=== PATIENT | male | born 1930 | race Caucasian/White ===

== ENCOUNTER → 2016-09-01 | Outpatient (CLI) | payer BC ==
[~2016-09-01] MED LIST: ASCO10003 PO; ASPCH81X PO; GLC500 PO; GLIP5TAB11 PO; LEVO100T PO; METF1000 PO; WARF2TAB PO
[2016-09-02 05:53] LABS: ESTIMATED AVERAGE GLUCOSE 163 mg/dl; HA1C FLAG Normal (Normal)
== END | disposition home or self-care (01) ==
LOC: C.LAB 16:05
PROVIDERS: ATTEND Internal Medicine
DX: E11.9 Type 2 diabetes mellitus without complications (principal)

== ENCOUNTER → 2016-11-11 | Outpatient (CLI) | payer BC ==
[~2016-11-11] MED LIST changes: +ACET-24 PO; +CMD5 PO; +LSN5 PO; +LVNIS80 SQ; +PRLSR20 PO; +RXC5 PO
--- NOTE | 2016-11-11 16:49 | DIAGNOSTIC IMAGING REPORT ---
CT SCAN OF THE ABDOMEN AND PELVIS WITHOUT CONTRAST CLINICAL HISTORY: Acute right lower quadrant abdominal pain COMPARISON STUDY: 04/22/2014 TECHNIQUE: CT scan of the abdomen and pelvis was performed from the lung bases to the proximal femurs. Images are reviewed in the axial, sagittal, and coronal planes. IV contrast was not administered for this examination. CT DOSE: 420.16 mGy.cm FINDINGS: Lower chest: There is mild basilar atelectasis and mild subpleural reticulation. Liver: The unenhanced liver is normal in size, contour, and attenuation. There is no intrahepatic biliary ductal dilatation. Gallbladder: Unremarkable. Spleen: Normal in size and attenuation. Pancreas: Unremarkable. Adrenal glands: Unremarkable. Kidneys: No renal, ureteral, or bladder calculi are visualized. Bowel: There is moderate stool present within the colon. There are no transition zones indicate bowel obstruction. There is no evidence of acute diverticulitis. By history the appendix is surgically absent Peritoneum: There is no intraperitoneal free air or abdominal ascites. Vasculature: The abdominal aorta is normal in course and caliber. Adenopathy: None. Pelvic viscera: The prostate is enlarged measuring 6 cm. There is mild bladder wall thickening. Skeletal structures: No destructive osseous lesions are seen. IMPRESSION: 1. No acute findings 2. No evidence of bowel obstruction. No evidence of free air 3. No renal, ureteral, or bladder calculi identified 4. Surgically absent appendix. No evidence of acute diverticulitis. 5. Prostamegaly. Mild bladder wall thickening Electronically signed by: Jesus Manuel Bartholomew M.D. 11/11/2016 4:48 PM Dictated Date/Time: 11/11/2016 4:45 PM
== END | disposition home or self-care (01) ==
LOC: C.CTS 14:18
PROVIDERS: ATTEND Internal Medicine
DX: R10.31 Right lower quadrant pain (principal)

== ENCOUNTER → 2016-11-19 | Outpatient (CLI) | payer BC ==
[2016-11-19 16:39] LABS: BASO % 0.7 %; BASO ABS # 0.04 K/uL (0-0.2); COMPLETE YES; EOS % 4.5 %; HEMATOCRIT 39.9 % (42-52); IG% 0.2 %; LYMPH % 25.4 %; LYMPH ABS # 1.41 K/uL (1.2-3.4); MEAN CELL VOLUME 93.2 fL (80-100); MEAN CORPUSCULAR HGB CONC 34.3 g/dl (32-36); MEAN PLATELET VOLUME 9.1 fL (7.4-10.4); MONO % 10.3 %; NEUT % 58.9 %; PLATELET COUNT 186 K/uL (130-400); RED BLOOD COUNT 4.28 M/uL (4.7-6.1); WHITE BLOOD COUNT 5.56 K/uL (4.8-10.8)
[2016-11-19 16:51] LABS: URINE APPEARANCE CLEAR (CLEAR); URINE BILIRUBIN NEG (NEG); URINE COLOR YELLOW; URINE EPITHELIAL CELL AUTO 0-5 /lpf (0-5); URINE NITRITE NEG (NEG); URINE PH 5.5 (4.5-7.5); URINE SPECIFIC GRAVITY 1.018 (1.000-1.030); UROBILINOGEN NEG (NEG)
[2016-11-19 16:52] LABS: MANUAL MICROSCOPIC REQUIRED? NO; REVIEW REQ? NO
[2016-11-19 17:29] LABS: ALT/SGPT 14 U/L (12-78); AST/SGOT 14 U/L (15-37); BLOOD UREA NITROGEN 28 mg/dl (7-18); BUN/CREATININE RATIO 21.5 (10-20); CALCIUM 8.8 mg/dl (8.5-10.1); CARBON DIOXIDE 25 mmol/L (21-32); CHLORIDE 109 mmol/L (98-107); GLUCOSE 92 mg/dl (70-99); POTASSIUM 4.9 mmol/L (3.5-5.1); SODIUM 142 mmol/L (136-145)
[2016-11-19 17:31] LABS: ALB/GLOB RATIO 1.1 (0.9-2); ALKALINE PHOSPHATASE 97 U/L (45-117)
== END | disposition home or self-care (01) ==
LOC: C.LAB 15:57
PROVIDERS: ATTEND Internal Medicine
DX: E11.9 Type 2 diabetes mellitus without complications (principal)

== ENCOUNTER 2016-11-21 09:43 | Emergency (ER) | payer BC ==
[~2016-11-21] VITALS: Ht 170.2 cm; Wt 77.3 kg
[~2016-11-21 09:43] MED LIST changes: -ACET-24 PO; -ASPCH81X PO; -CMD5 PO; -LSN5 PO; -LVNIS80 SQ; -METF1000 PO; -PRLSR20 PO; -RXC5 PO
[2016-11-21 09:48] VITALS: TEMP 36.3; Ht 170.2 cm; Wt 77.3 kg
[2016-11-21] MEDS ORDERED: METF1000 PO (10:34)
[2016-11-21] MEDS ORDERED: ASPCH81X PO (10:34)
[2016-11-21 10:48] LABS: URINE APPEARANCE CLEAR (CLEAR); URINE BILIRUBIN NEG (NEG); URINE COLOR YELLOW; URINE NITRITE NEG (NEG); URINE SPECIFIC GRAVITY 1.018 (1.000-1.030); UROBILINOGEN NEG (NEG)
[2016-11-21 10:51] LABS: BASO % 0.5 %; BASO ABS # 0.03 K/uL (0-0.2); COMPLETE YES; EOS % 4.7 %; HEMATOCRIT 41.3 % (42-52); IG% 0.2 %; LYMPH ABS # 1.42 K/uL (1.2-3.4); MEAN CORPUSCULAR HEMOGLOBIN 31.8 pg (25-34); MEAN CORPUSCULAR HGB CONC 34.1 g/dl (32-36); MEAN PLATELET VOLUME 9.3 fL (7.4-10.4); MONO % 7.5 %; NEUT % 64.1 %; PLATELET COUNT 200 K/uL (130-400); RED BLOOD COUNT 4.44 M/uL (4.7-6.1); WHITE BLOOD COUNT 6.17 K/uL (4.8-10.8)
[2016-11-21 10:55] LABS: MANUAL MICROSCOPIC REQUIRED? NO; REVIEW REQ? NO
[2016-11-21 10:59] LABS: INR 0.9 (0.9-1.1); PROTHROMBIN TIME (PATIENT) 9.9 SECONDS (9.0-12.0)
[2016-11-21 11:07] LABS: BUN/CREATININE RATIO 20.1 (10-20); CALCIUM 9.5 mg/dl (8.5-10.1); CREATININE 1.2 mg/dl (0.60-1.40); POTASSIUM 4.7 mmol/L (3.5-5.1)
[2016-11-21 11:42] VITALS: BP 180/83; PULSE 65; O2SAT 98
--- NOTE | 2016-11-21 17:24 | EMERGENCY ROOM VISIT NOTE ---
History Report prepared by Kati: Maury Goff Under the Supervision of: Dr. Aldair Shahid M.D. First contact with patient: 09:54 Chief Complaint: ABDOMINAL PAIN Stated Complaint: ABD PAIN Nursing Triage Summary: Abd pain. Pt states it has been going on for approx 2 weeks, has been evaluated outpt, but nothing found. He called his FMD and was told to come to the ER History of Present Illness The patient is a 86 year old male who presents to the Emergency Room with complaints of intermittent diffuse abdominal "aching" beginning two weeks ago. He states that his pain is currently not present. He states that Advil has improved his pain, but that nothing worsens the pain. The patient denies any SOB , urinary symptoms, fevers, vomiting, diarrhea, or black or bloody stools. He has a history of an appendectomy occurring around 60 years ago. He also has a history of knee surgery, and cataract surgery. The patient notes that he has had a very mild, constant "soreness" in his chest for the past six months. He has had CT scans, ECGs, and laboratory studies for the chest pain, but no source has been identified. He states that his doctor told him that he would just have to live with it. He rates as a 1 out of 10 and it has been there for 6 months straight fairly constantly. He has also had a workup for his abdominal pain including blood work 2 days ago and a negative CT scan recently. He called his doctor this morning because he stated that he had some trouble sleeping last night because of his abdominal pain. Although his pain had resolved this morning his physician told him to get evaluated in the emergency department. The patient states he did not want to come but came because of his physician's recommendation. Source of History: patient Onset: two weeks ago Position: abdomen (diffuse) Quality: ache Timing: resolved Modifying Factors (Worsening): other (none) Modifying Factors (Relieving): other (Advil) Associated Symptoms: + chest pain (mild, for six months), No SOB, No back pain, No diarrhea, No fevers, No hematochezia, No melena, No urinary symptoms, No vomiting Review of Systems See HPI for pertinent positives & negatives. A total of 10 systems reviewed and were otherwise negative. Past Medical & Surgical Medical Problems: (1) Diabetes (2) Right knee DJD Surgical Problems: (1) H/O knee surgery (2) Hx of appendectomy (3) Hx of cataract surgery Family History FH: diabetes mellitus FH: heart disease Kidney stones Social History Smoking Status: Never Smoker Current/Historical Medications Scheduled Ascorbic Acid (Vitamin C), 1 TAB PO DAILY Aspirin (Aspirin Chewable), 81 MG PO QAM Glipizide (Glucotrol), 5 MG PO BID Levothyroxine Sodium (Synthroid), 100 MCG PO HS Metformin Hcl (Glucophage), 1,000 MG PO BID Allergies Coded Allergies: No Known Allergies (Unverified , 11/21/16) pt Physical Exam Vital Signs Date Time Temp Pulse Resp B/P Pulse Ox O2 Delivery O2 Flow Rate FiO2 11/21/16 11:42 65 18 180/83 98 11/21/16 10:25 53 11/21/16 09:48 36.3 65 16 170/81 97 Room Air Physical Exam Constitutional: Vital signs reviewed. Eyes: Pupils are equal round reactive to light. Conjunctiva are noninjected. ENT: Pharynx is clear without erythema or exudate. Mucous membranes are moist. Neck supple without meningeal signs. Respiratory: Clear to auscultation bilaterally. Breath sounds are equal bilaterally. Cardiovascular: Regular rate and rhythm. No rubs or gallops. GI: Soft, nondistended and nontender. Bowel sounds are present. Musculoskeletal: No peripheral edema. No lower extremity tenderness. No CVA tenderness. Integumentary: No cyanosis. Neurological: The patient is awake and alert. No focal deficits. Psychiatric: Normal affect. Medical Decision & Procedures Laboratory Results 11/21/16 10:10 Red Blood Count 4.44, Mean Corpuscular Volume 93.0, Mean Corpuscular Hemoglobin 31.8, Mean Corpuscular Hemoglobin Concent 34.1, Mean Platelet Volume 9.3, Neutrophils (%) (Auto) 64.1, Lymphocytes (%) (Auto) 23.0, Monocytes (%) (Auto) 7.5, Eosinophils (%) (Auto) 4.7, Basophils (%) (Auto) 0.5, Neutrophils # (Auto) 3.96, Lymphocytes # (Auto) 1.42, Monocytes # (Auto) 0.46, Eosinophils # (Auto) 0.29, Basophils # (Auto) 0.03 11/21/16 10:10 Test 11/21/16 10:10 11/21/16 10:11 11/21/16 10:14 11/21/16 10:15 White Blood Count 6.17 K/uL (4.8-10.8) Red Blood Count 4.44 M/uL (4.7-6.1) Hemoglobin 14.1 g/dL (14.0-18.0) Hematocrit 41.3 % (42-52) Mean Corpuscular Volume 93.0 fL (80-100) Mean Corpuscular Hemoglobin 31.8 pg (25-34) Mean Corpuscular Hemoglobin Concent 34.1 g/dl (32-36) Platelet Count 200 K/uL (130-400) Mean Platelet Volume 9.3 fL (7.4-10.4) Neutrophils (%) (Auto) 64.1 % Lymphocytes (%) (Auto) 23.0 % Monocytes (%) (Auto) 7.5 % Eosinophils (%) (Auto) 4.7 % Basophils (%) (Auto) 0.5 % Neutrophils # (Auto) 3.96 K/uL (1.4-6.5) Lymphocytes # (Auto) 1.42 K/uL (1.2-3.4) Monocytes # (Auto) 0.46 K/uL (0.11-0.59) Eosinophils # (Auto) 0.29 K/uL (0-0.5) Basophils # (Auto) 0.03 K/uL (0-0.2) RDW Standard Deviation 44.4 fL (36.4-46.3) RDW Coefficient of Variation 13.0 % (11.5-14.5) Immature Granulocyte % (Auto) 0.2 % Immature Granulocyte # (Auto) 0.01 K/uL (0.00-0.02) Anion Gap 7.0 mmol/L (3-11) Est Creatinine Clear Calc Drug Dose 42.1 ml/min Estimated GFR () 63.5 Estimated GFR (Non- 54.8 BUN/Creatinine Ratio 20.1 (10-20) Calcium Level 9.5 mg/dl (8.5-10.1) Total Bilirubin 0.5 mg/dl (0.2-1) Direct Bilirubin 0.1 mg/dl (0-0.2) Aspartate Amino Transf (AST/SGOT) 12 U/L (15-37) Alanine Aminotransferase (ALT/SGPT) 13 U/L (12-78) Alkaline Phosphatase 106 U/L (45-117) Total Protein 6.8 gm/dl (6.4-8.2) Albumin 3.8 gm/dl (3.4-5.0) Lipase 139 U/L (73-393) Bedside Troponin I 0.000 ng/ml (0-0.045) Prothrombin Time 9.9 SECONDS (9.0-12.0) Prothromb Time International Ratio 0.9 (0.9-1.1) Urine Color YELLOW Urine Appearance CLEAR (CLEAR) Urine pH 5.0 (4.5-7.5) Urine Specific [place] 1.018 (1.000-1.030) Urine Protein NEG (NEG) Urine Glucose (UA) 2+ (NEG) Urine Ketones NEG (NEG) Urine Occult Blood NEG (NEG) Urine Nitrite NEG (NEG) Urine Bilirubin NEG (NEG) Urine Urobilinogen NEG (NEG) Urine Leukocyte Esterase NEG (NEG) Laboratory results as reviewed by me. ECG Indication: chest pain Rate (beats per minute): 55 Rhythm: sinus bradycardia Findings: Q waves (Inferior), no ectopy ED Course 0956: The patient was evaluated in room A9B. A complete history and physical exam was performed. 1120: I discussed linda's findings with the patient. He verbalized agreement of the treatment plan. He will follow up with GI. The patient was discharged home. Medical Decision This is an 86-year-old male who presents with abdominal pain and chest pain. Differential diagnosis includes pleurisy, coronary artery disease, irritable bowel syndrome, gastritis, pancreatitis. I did perform a limited focused review of portions of the patient's old chart on the electronic medical record. The patient had a CT of the belly on November 11 which showed no acute findings. He had blood work two days ago which showed mild anemia. I did evaluate the patient as noted above. The patient is presenting with abdominal pain. He has had this abdominal pain worked up by his physician as an outpatient with an unremarkable CT of the abdomen and pelvis. He had some worsening pain last night which is now completely alleviated after taking NSAIDs. He called his doctor this morning who advised him to come to the emergency department. He has no tenderness or pain on exam. He does mention that he has had chest pain almost constantly for the past 6 months as well. He states he has been evaluated by his physician for this as well. IV access was established. I did order and personally review the patient's 12-lead EKG as described above. Urine analysis is unremarkable. I did order and review the patient's blood work as noted in the electronic medical record. His white blood cell count is not elevated. Labs are unremarkable. Troponin is 0. I did discuss the test results with the patient. At this time I did not see an indication for further imaging or studies in the emergency department. I did recommend close follow up with his doctor for further evaluation. He was discharged in good condition. Impression Primary Impression: Diffuse abdominal pain Additional Impression: Chronic chest pain Scribe Attestation The scribe's documentation has been prepared under my direct and personally reviewed by me in its entirety. I confirm that the note above accurately reflects all work, treatment, procedures, and medical decision making performed by me. Departure Information Dispostion Home / Self-Care Referrals Selwyn Zurita M.D. (PCP) Forms HOME CARE DOCUMENTATION FORM, IMPORTANT VISIT INFORMATION Patient Instructions ED Abd Pain Unkn Cause Male, My [facility] Additional Instructions You have been examined and treated today on an emergency basis only. This is not a substitute for, or an effort to provide, complete comprehensive medical care. It is impossible to recognize and treat all injuries or illnesses in a single emergency department visit. It is therefore important that you follow up closely with your physician and Dr. Estrada of gastroenterology. Call as soon as possible for an appointment. Return for worsening symptoms or if you develop fever, vomiting, rectal bleeding, black or tarry stools, blood in your urine, decreased urination, or any other concerning symptoms. Problem Qualifiers
[2017-06-10] MEDS ORDERED: ACET-24 PO (12:28)
[2017-06-10] MEDS ORDERED: CMD5 PO (12:28)
[2017-06-10] MEDS ORDERED: LVNIS80 SQ (12:28)
[2017-06-10] MEDS ORDERED: LSN5 PO (12:28)
[2017-06-18] MEDS ORDERED: RXC5 PO (13:17)
== END 2016-11-21 11:38 | disposition home or self-care (01) ==
LOC: C.EDB 09:43 → C.EDA 11:38
DX: R10.84 Generalized abdominal pain (principal); G89.29 Other chronic pain; E11.9 Type 2 diabetes mellitus without complications; Z83.3 Family history of diabetes mellitus; Z82.49 Family history of ischemic heart disease and other diseases of the circulatory system; Z79.82 Long term (current) use of aspirin

== ENCOUNTER → 2016-11-22 | Outpatient (CLI) | payer BC ==
[~2016-11-22] MED LIST changes: +ACET-24 PO; +ASPCH81X PO; +CMD5 PO; -GLC500 PO; +LSN5 PO; +LVNIS80 SQ; +METF1000 PO; +PRLSR20 PO; +RXC5 PO; -WARF2TAB PO
== END | disposition home or self-care (01) ==
LOC: C.RDSM 12:50
PROVIDERS: ATTEND Physical Medicine & Rehabilitation Sports Medicine
DX: M25.561 Pain in right knee (principal)

== ENCOUNTER → 2016-12-17 | Outpatient (CLI) | payer BC ==
[2016-12-17 16:42] LABS: HEMATOCRIT 29.1 % (42-52); MEAN CELL VOLUME 92.1 fL (80-100); MEAN CORPUSCULAR HEMOGLOBIN 29.4 pg (25-34); MEAN PLATELET VOLUME 8.6 fL (7.4-10.4); PLATELET COUNT 382 K/uL (130-400); RED BLOOD COUNT 3.16 M/uL (4.7-6.1); WHITE BLOOD COUNT 6.11 K/uL (4.8-10.8)
== END | disposition home or self-care (01) ==
LOC: C.LABBC 14:34
PROVIDERS: ATTEND Physician Assistant Medical
DX: Z87.19 Personal history of other diseases of the digestive system (principal)

== ENCOUNTER → 2017-01-05 | Outpatient (CLI) | payer BC ==
[2017-01-05 09:26] LABS: BASO % 0.7 %; BASO ABS # 0.03 K/uL (0-0.2); COMPLETE YES; HEMATOCRIT 33.1 % (42-52); IG% 0.2 %; LYMPH % 28.1 %; LYMPH ABS # 1.28 K/uL (1.2-3.4); MEAN CELL VOLUME 91.7 fL (80-100); MEAN CORPUSCULAR HEMOGLOBIN 29.1 pg (25-34); MEAN CORPUSCULAR HGB CONC 31.7 g/dl (32-36); MEAN PLATELET VOLUME 9.1 fL (7.4-10.4); MONO % 7.9 %; NEUT % 54.1 %; PLATELET COUNT 227 K/uL (130-400); RED BLOOD COUNT 3.61 M/uL (4.7-6.1); WHITE BLOOD COUNT 4.55 K/uL (4.8-10.8)
== END | disposition home or self-care (01) ==
LOC: C.LAB 07:59
PROVIDERS: ATTEND Physician Assistant Medical
DX: E11.9 Type 2 diabetes mellitus without complications (principal)

== ENCOUNTER → 2017-02-07 | Outpatient (CLI) | payer BC ==
[~2017-02-07] MED LIST changes: -ACET-24 PO; -CMD5 PO; -LSN5 PO; -LVNIS80 SQ; -PRLSR20 PO; -RXC5 PO
[2017-02-07 15:35] LABS: BASO % 0.3 %; BASO ABS # 0.02 K/uL (0-0.2); COMPLETE YES; EOS % 3.1 %; HEMATOCRIT 35.4 % (42-52); IG% 0.2 %; LYMPH % 15.3 %; LYMPH ABS # 0.98 K/uL (1.2-3.4); MEAN CELL VOLUME 85.3 fL (80-100); MEAN CORPUSCULAR HEMOGLOBIN 26.7 pg (25-34); MEAN CORPUSCULAR HGB CONC 31.4 g/dl (32-36); MEAN PLATELET VOLUME 9.1 fL (7.4-10.4); MONO % 8.3 %; NEUT % 72.8 %; PLATELET COUNT 223 K/uL (130-400); RED BLOOD COUNT 4.15 M/uL (4.7-6.1); WHITE BLOOD COUNT 6.41 K/uL (4.8-10.8)
[2017-02-07 15:43] LABS: ESTIMATED AVERAGE GLUCOSE 151 mg/dl; HA1C FLAG Normal (Normal)
[2017-02-07 16:12] LABS: ALT/SGPT 13 U/L (12-78); BLOOD UREA NITROGEN 33 mg/dl (7-18); BUN/CREATININE RATIO 20.7 (10-20); CALCIUM 9.6 mg/dl (8.5-10.1); CARBON DIOXIDE 26 mmol/L (21-32); CHLORIDE 112 mmol/L (98-107); GLUCOSE 132 mg/dl (70-99); SODIUM 145 mmol/L (136-145)
[2017-02-07 16:23] LABS: ALB/GLOB RATIO 1.1 (0.9-2); ALKALINE PHOSPHATASE 113 U/L (45-117); AST/SGOT 16 U/L (15-37)
== END | disposition home or self-care (01) ==
LOC: C.LAB 14:56
PROVIDERS: ATTEND Internal Medicine
DX: E11.9 Type 2 diabetes mellitus without complications (principal)

== ENCOUNTER → 2017-04-21 | Outpatient (CLI) | payer BC ==
[2017-04-21 12:45] LABS: BASO % 0.6 %; BASO ABS # 0.03 K/uL (0-0.2); COMPLETE YES; EOS % 3.4 %; HEMATOCRIT 38.5 % (42-52); LYMPH % 25.2 %; LYMPH ABS # 1.24 K/uL (1.2-3.4); MEAN CELL VOLUME 84.8 fL (80-100); MEAN CORPUSCULAR HEMOGLOBIN 28.6 pg (25-34); MEAN CORPUSCULAR HGB CONC 33.8 g/dl (32-36); MEAN PLATELET VOLUME 9.3 fL (7.4-10.4); MONO % 9.1 %; NEUT % 61.7 %; PLATELET COUNT 164 K/uL (130-400); RED BLOOD COUNT 4.54 M/uL (4.7-6.1); WHITE BLOOD COUNT 4.93 K/uL (4.8-10.8)
[2017-04-21 13:08] LABS: BLOOD UREA NITROGEN 23 mg/dl (7-18); BUN/CREATININE RATIO 17.8 (10-20); CARBON DIOXIDE 29 mmol/L (21-32); CHLORIDE 105 mmol/L (98-107); GLUCOSE 278 mg/dl (70-99); POTASSIUM 4.6 mmol/L (3.5-5.1); SODIUM 138 mmol/L (136-145)
[2017-04-21 13:12] LABS: FERRITIN 20.9 ng/ml (8.0-388.0)
== END | disposition home or self-care (01) ==
LOC: C.LAB 09:36
PROVIDERS: ATTEND Internal Medicine
DX: D50.0 Iron deficiency anemia secondary to blood loss (chronic) (principal); N28.9 Disorder of kidney and ureter, unspecified

== ENCOUNTER 2017-06-03 15:58 | Emergency (ER) | payer OTHER, BC ==
[~2017-06-03] VITALS: Ht 170.2 cm; Wt 81.1 kg
[2017-06-03 16:03] VITALS: Ht 170.2 cm; Wt 81.1 kg
[2017-06-03] MEDS ORDERED: ONDANSETRON INJ 2 MG/ML 2 ML VIAL IV STA (16:16)
[2017-06-03] MEDS ORDERED: MoRPHine SULFATE 4 MG/ML 1 ML CARP\\VIAL IV STA ×2 (16:16→17:52)
[2017-06-03] MEDS ORDERED: OPTIRAY 320 IV PRN (16:30)
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
[2017-06-03] MEDS ORDERED: PRLSR20 PO (17:29)
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
[2017-06-03 18:45] VITALS: BP 134/70; PULSE 56; TEMP 36.5; O2SAT 97
== END 2017-06-03 18:46 | disposition short-term general hospital (02) ==
LOC: EDBD 15:58 → C.EDA 15:59
DX: S22.20XA Unspecified fracture of sternum, initial encounter for closed fracture (principal); S20.219A Contusion of unspecified front wall of thorax, initial encounter; V43.52XA Car driver injured in collision with other type car in traffic accident, initial encounter; R00.1 Bradycardia, unspecified; M47.892 Other spondylosis, cervical region; M50.33 Other cervical disc degeneration, cervicothoracic region; E11.9 Type 2 diabetes mellitus without complications; Z98.49 Cataract extraction status, unspecified eye; Z98.890 Other specified postprocedural states; Z79.84 Long term (current) use of oral hypoglycemic drugs; Z79.899 Other long term (current) drug therapy; Z83.3 Family history of diabetes mellitus; Z82.49 Family history of ischemic heart disease and other diseases of the circulatory system

== ENCOUNTER 2017-06-06 08:01 | Inpatient (IN) | payer OTHER, BC ==
[~2017-06-06] VITALS: Ht 170.2 cm; Wt 75.6 kg
[~2017-06-06 08:01] MED LIST changes: -ASPCH81X PO; +PRLSR20 PO
[2017-06-06] MEDS ORDERED: ONDANSETRON INJ 2 MG/ML 2 ML VIAL IV STA (08:23)
[2017-06-06] MEDS ORDERED: MoRPHine SULFATE 4 MG/ML 1 ML CARP\\VIAL IV STA (08:23)
[2017-06-06] MEDS ORDERED: OPTIRAY 320 IV PRN (08:30)
--- NOTE | 2017-06-06 09:00 | DIAGNOSTIC IMAGING REPORT ---
SINGLE VIEW CHEST CLINICAL HISTORY: Atypical chest pain. FINDINGS: An AP, portable, upright chest radiograph is compared to study dated 06/04/2016 and correlated with chest CT dated 06/03/2017. The examination is degraded by portable technique and patient rotation. The heart is mildly enlarged and there is atherosclerotic calcification of the thoracic aorta. The pulmonary vasculature is noncongested. There are trace pleural effusions. Airspace consolidation is noted at the left lung base. No pneumothorax is seen. The skeletal structures are osteopenic. The bony thorax is grossly intact. IMPRESSION: 1. Cardiomegaly without radiographic evidence of congestive failure. 2. There is left basilar airspace consolidation, new from the 06/03/2017 CT scan. Correlate clinically for evidence of pneumonia/aspiration pneumonitis. Radiographic follow-up to resolution is recommended. 3. Trace pleural effusions. Electronically signed by: Brad John M.D. 06/06/2017 8:58 AM Dictated Date/Time: 06/06/2017 8:57 AM
[2017-06-06 09:01] LABS: BASO % 0.3 %; BASO ABS # 0.02 K/uL (0-0.2); COMPLETE YES; EOS % 1.4 %; HEMATOCRIT 35.7 % (42-52); IG% 0.2 %; LYMPH % 12.7 %; LYMPH ABS # 0.79 K/uL (1.2-3.4); MEAN CELL VOLUME 88.6 fL (80-100); MEAN PLATELET VOLUME 9.3 fL (7.4-10.4); MONO % 8.8 %; NEUT % 76.6 %; PLATELET COUNT 136 K/uL (130-400); RED BLOOD COUNT 4.03 M/uL (4.7-6.1); WHITE BLOOD COUNT 6.23 K/uL (4.8-10.8)
[2017-06-06 09:20] LABS: BUN/CREATININE RATIO 14.1 (10-20); CALCIUM 8.4 mg/dl (8.5-10.1); CREATININE 1.37 mg/dl (0.60-1.40); POTASSIUM 3.8 mmol/L (3.5-5.1)
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
[2017-06-06 13:15] LABS: PROTHROMBIN TIME (PATIENT) 10.6 SECONDS (9.0-12.0)
[2017-06-06] MEDS ORDERED: ONDANSETRON INJ 2 MG/ML 2 ML VIAL IV PRN (13:15)
[2017-06-06] MEDS ORDERED: GLUCOSE 40% GEL 15 GM TUBE PO PRN (13:15)
[2017-06-06] MEDS ORDERED: ALUMINUM/MAGNESIUM/SIMETH (MAALOX MAX) 30 ML UDC PO PRN (13:15)
[2017-06-06] MEDS ORDERED: DEXTROSE 50% 50 ML SYR IV PRN (13:15)
[2017-06-06] MEDS ORDERED: GLUCAGON FOR INJ 1 MG VIAL SQ PRN (13:15)
[2017-06-06] MEDS ORDERED: GLUCOSE 10 TABS/TUBE PO PRN (13:15)
[2017-06-06] MEDS ORDERED: POLYETHYLENE (MIRALAX) 17 GM PACK PO PRN (13:15)
[2017-06-06] MEDS ORDERED: MAGNESIUM HYDROXIDE SUSP 30 ML UDC PO PRN (13:15)
[2017-06-06] MEDS ORDERED: MoRPHine SULFATE 4 MG/ML 1 ML CARP\\VIAL IV PRN (13:15)
[2017-06-06] MEDS ORDERED: ACETAMINOPHEN 325 MG TAB PO PRN (13:15)
[2017-06-06] MEDS ORDERED: TRAMADOL HCL 50 MG TAB PO PRN (13:15)
[2017-06-06] MEDS ORDERED: HEPARIN SOD 5000 UNIT/0.5 ML CARP ONE (13:20)
[2017-06-06] MEDS ORDERED: HEPARIN 25000 UNIT/500 ML D5W ONE (13:20)
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
[2017-06-06] MEDS ORDERED: HEPARIN IV BOLUS 5,000 UNIT in SYRINGE 0 ML IV ONE (14:00)
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
[2017-06-06 14:51] VITALS: BP 191/80; PULSE 69; TEMP 36.7; O2SAT 99; Ht 170.2 cm; Wt 75.6 kg
[2017-06-06] MEDS ORDERED: HEPARIN IV BOLUS 6,000 UNIT in SYRINGE 0 ML IV ONE (15:15)
[2017-06-06] MEDS ORDERED: HEPARIN 25,000 UNIT/500ML D5W 500 ML IV PRN (15:15)
[2017-06-06 16:00] VITALS: O2SAT 97
[2017-06-06] MEDS: INSULIN ASPART 100 UNITS/ML 3 ML PEN SC SCH ×2 (16:15→21:00)
[2017-06-06] MEDS ORDERED: OXYCODONE HCL IR 5 MG TAB (IMMEDIATE RELEASE) PO PRN (17:00)
[2017-06-06] MEDS: ACETAMINOPHEN 500 MG TAB PO SCH ×2 (18:00→23:37)
[2017-06-06 18:11] VITALS: O2SAT 92
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
[2017-06-06 19:02] VITALS: BP 144/71; PULSE 66; TEMP 36.8; O2SAT 95
[2017-06-06 20:00] LABS: PARTIAL THROMBOPLASTIN RATIO 2.6
[2017-06-06] MEDS: LEVOTHYROXINE 100 MCG TAB PO SCH (23:37)
[2017-06-06 23:40] VITALS: BP 137/70; PULSE 72; TEMP 36.8; O2SAT 93
[2017-06-07 03:38] VITALS: BP 143/71; PULSE 73; TEMP 36.6; O2SAT 94
[2017-06-07] MEDS: ACETAMINOPHEN 500 MG TAB PO SCH ×3 (05:48→20:14)
[2017-06-07] MEDS: INSULIN ASPART 100 UNITS/ML 3 ML PEN SC SCH ×4 (07:00→20:16)
[2017-06-07 07:49] LABS: HEMATOCRIT 32.5 % (42-52); MEAN CELL VOLUME 89.8 fL (80-100); MEAN CORPUSCULAR HEMOGLOBIN 30.7 pg (25-34); MEAN CORPUSCULAR HGB CONC 34.2 g/dl (32-36); MEAN PLATELET VOLUME 9.3 fL (7.4-10.4); PLATELET COUNT 138 K/uL (130-400); RED BLOOD COUNT 3.62 M/uL (4.7-6.1); WHITE BLOOD COUNT 4.86 K/uL (4.8-10.8)
[2017-06-07 07:53] LABS: PARTIAL THROMBOPLASTIN RATIO 3.2
[2017-06-07 07:58] VITALS: BP 173/76; PULSE 79; TEMP 36.6; O2SAT 93
[2017-06-07 08:10] LABS: BUN/CREATININE RATIO 15.3 (10-20); CREATININE 1.16 mg/dl (0.60-1.40); POTASSIUM 3.9 mmol/L (3.5-5.1)
--- NOTE | 2017-06-07 08:35 | DIAGNOSTIC IMAGING REPORT ---
CHEST 2 VIEWS ROUTINE CLINICAL HISTORY: pleural effusions COMPARISON STUDY: 06/06/2017 FINDINGS: The heart is borderline enlarged. There is aortic tortuosity/ectasia. There are small bilateral pleural effusions. Bibasilar opacities are likely atelectatic. There is no failure.[ IMPRESSION: Persistent small bilateral pleural effusions with bibasilar atelectatic changes Electronically signed by: Jesus Manuel Bartholomew M.D. 06/07/2017 8:33 AM Dictated Date/Time: 06/07/2017 8:32 AM
[2017-06-07] MEDS: HEPARIN 25,000 UNIT/500ML D5W 500 ML IV PRN (08:43)
[2017-06-07] MEDS: PANTOprazole SOD 40 MG TAB PO SCH (08:45)
[2017-06-07] MEDS: POLYETHYLENE (MIRALAX) 17 GM PACK PO SCH (08:46)
[2017-06-07] MEDS: LIDODERM (LIDOCAINE) PATCH 5% TD SCH ×2 (08:46→10:28)
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
[2017-06-07 10:40] LABS: ESTIMATED AVERAGE GLUCOSE 160 mg/dl; HA1C FLAG Normal (Normal)
--- NOTE | 2017-06-07 11:04 | DIAGNOSTIC IMAGING REPORT ---
ULTRASOUND BILATERAL LOWER EXTREMITY VENOUS CLINICAL HISTORY: Pulmonary embolus. COMPARISON STUDY: No priors. TECHNIQUE: Real-time, grayscale, and color Doppler sonography of the deep veins of the right and left lower extremity was performed from the inguinal crease to the calf. Compression and augmentation were utilized. FINDINGS: There is no sonographic evidence of deep venous thrombosis identified in the right or left lower extremity. The common femoral, superficial femoral, and popliteal veins are patent and normally compressible bilaterally. The greater saphenous vein and the profunda femoris vein at the junction with the common femoral vein are clear in both legs. The visualized calf veins are patent bilaterally. IMPRESSION: There is no sonographic evidence of deep venous thrombosis identified in the right or left lower extremity. Electronically signed by: Brad John M.D. 06/07/2017 11:02 AM Dictated Date/Time: 06/07/2017 11:02 AM
[2017-06-07] MEDS: HydrALAZINE HCL 20 MG/ML VIAL IV. PRN (11:21)
[2017-06-07 11:44] VITALS: BP_SYST 178; BP_SYST 193; BP_DIAS 100; BP_DIAS 85; PULSE 64; TEMP 36.5; O2SAT 93
[2017-06-07 15:36] VITALS: BP 152/82; PULSE 80; TEMP 36.9; O2SAT 93
[2017-06-07 15:53] LABS: PARTIAL THROMBOPLASTIN RATIO 1.9
--- NOTE | 2017-06-07 18:15 | SURGERY PROGRESS NOTE ---
DATE: 06/07/2017 Mr. Orozco is seen today. His x-ray looks about the same. Hematoma can actually be seen on the lateral film. At this point, I am pretty happy with him, I would continue the anticoagulation as ordered. He states that his pain is much better than it was yesterday. He does have decreased breath sounds in the bases but I would not do anything different at this point.
[2017-06-07 19:53] VITALS: BP 170/84; PULSE 79; TEMP 36.9; O2SAT 95
[2017-06-07] MEDS: LEVOTHYROXINE 100 MCG TAB PO SCH (20:13)
[2017-06-07 23:50] VITALS: BP 150/74; PULSE 72; TEMP 36.9; O2SAT 94
[2017-06-08] VITALS (11 sets, daily range): BP systolic 156–182; BP diastolic 73–81; PULSE 61–70; TEMP 36.3–37.1; O2SAT 94–97
[2017-06-08 06:01] LABS: HEMATOCRIT 32.7 % (42-52); MEAN CELL VOLUME 88.9 fL (80-100); MEAN CORPUSCULAR HEMOGLOBIN 30.7 pg (25-34); MEAN CORPUSCULAR HGB CONC 34.6 g/dl (32-36); PLATELET COUNT 148 K/uL (130-400); RED BLOOD COUNT 3.68 M/uL (4.7-6.1); WHITE BLOOD COUNT 5.21 K/uL (4.8-10.8)
[2017-06-08] MEDS: ACETAMINOPHEN 500 MG TAB PO SCH ×3 (06:33→22:12)
[2017-06-08 06:36] LABS: BUN/CREATININE RATIO 16.2 (10-20); CALCIUM 8.2 mg/dl (8.5-10.1); CREATININE 1.21 mg/dl (0.60-1.40)
[2017-06-08 06:52] LABS: PARTIAL THROMBOPLASTIN RATIO 2.1
[2017-06-08] MEDS: INSULIN ASPART 100 UNITS/ML 3 ML PEN SC SCH ×4 (07:00→20:54)
[2017-06-08] MEDS: PANTOprazole SOD 40 MG TAB PO SCH (08:12)
[2017-06-08] MEDS: POLYETHYLENE (MIRALAX) 17 GM PACK PO SCH (08:13)
[2017-06-08] MEDS: LIDODERM (LIDOCAINE) PATCH 5% TD SCH (08:14)
[2017-06-08] MEDS: HEPARIN 25,000 UNIT/500ML D5W 500 ML IV PRN (09:17)
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
[2017-06-08] MEDS ORDERED: OPTIRAY 320 IV PRN (10:30)
[2017-06-08] MEDS ORDERED: LISINOPRIL 2.5 MG TAB PO ONE (10:30)
--- NOTE | 2017-06-08 11:24 | DIAGNOSTIC IMAGING REPORT ---
CT OF THE CHEST WITH IV CONTRAST CLINICAL HISTORY: Mediastinal hematoma COMPARISON STUDY: 06/06/2017 TECHNIQUE: Following the IV administration of 94 mL of Optiray-320, CT of the thorax was performed from the thoracic inlet to the lung bases. Images are reviewed in the axial, sagittal, and coronal planes. IV contrast was administered without complication. A dose lowering technique was utilized adhering to the principles of ALARA. CT DOSE: 310.66 mGycm FINDINGS: Thyroid: There is a 6 mm lower pole left lobe thyroid nodule. Thoracic aorta: The ascending thoracic aorta measures 36 mm. Pulmonary vasculature: There is poor pulmonary arterial opacification. The previously described pulmonary emboli are not visualized the current study. HEART: There are coronary artery calcifications present. There is a small pericardial effusion. Lungs and pleural spaces: There are persistent small moderate bilateral pleural effusions. There are dependent bibasilar opacities containing radiopaque material. This raises the possibility of prior aspiration. Mediastinum: There is a retrosternal mass measuring 59 x 27 x 15 mm. This remains essentially unchanged in size from the preceding study. The findings are again consistent with a hematoma. Yun: There is no evidence of pathologic hilar adenopathy Axilla: There is no evidence of pathologic axillary lymphadenopathy. Upper abdomen: Partially visualized upper abdominal viscera is within normal limits. Skeletal structures: A sternal fractures again visualized. IMPRESSION: 1. No significant change in the appearance of the sternal fracture 2. Stable retrosternal hematoma measuring 59 x 27 x 15 mm 3. Small to moderate bilateral pleural effusions with associated bibasilar atelectasis Electronically signed by: Jesus Manuel Bartholomew M.D. 06/08/2017 11:23 AM Dictated Date/Time: 06/08/2017 11:17 AM
--- NOTE | 2017-06-08 12:09 | SURGERY PROGRESS NOTE ---
DATE: 06/08/2017 DATE: 06/08/2017 Mr. Orozco was seen today. He looks and feels better. He is on room air with 96% saturations. He had a repeat CT scan done today and his pleural effusions are about the same. The hematoma has not really changed. 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 We will see him back in the office in a week with an x-ray. SHYANN
[2017-06-08] MEDS ORDERED: MAGNESIUM HYDROXIDE SUSP 30 ML UDC PO ONE (14:30)
[2017-06-08] MEDS: WARFARIN SOD 5 MG TAB PO SCH (16:36)
[2017-06-08] MEDS: LEVOTHYROXINE 100 MCG TAB PO SCH (20:50)
[2017-06-09] VITALS (10 sets, daily range): BP systolic 133–182; BP diastolic 71–88; PULSE 63–75; TEMP 36.5–36.9; O2SAT 94–99
[2017-06-09] MEDS: ACETAMINOPHEN 500 MG TAB PO SCH ×3 (05:41→21:10)
[2017-06-09 05:57] LABS: HEMATOCRIT 31.8 % (42-52); MEAN CELL VOLUME 88.8 fL (80-100); MEAN CORPUSCULAR HEMOGLOBIN 30.2 pg (25-34); MEAN PLATELET VOLUME 8.7 fL (7.4-10.4); PLATELET COUNT 150 K/uL (130-400); RED BLOOD COUNT 3.58 M/uL (4.7-6.1); WHITE BLOOD COUNT 5.06 K/uL (4.8-10.8)
[2017-06-09 06:11] LABS: PARTIAL THROMBOPLASTIN RATIO 2.1; PROTHROMBIN TIME (PATIENT) 10.7 SECONDS (9.0-12.0)
[2017-06-09 06:31] LABS: BUN/CREATININE RATIO 16.5 (10-20); CALCIUM 8.1 mg/dl (8.5-10.1); CREATININE 1.13 mg/dl (0.60-1.40); POTASSIUM 3.8 mmol/L (3.5-5.1)
[2017-06-09] MEDS: INSULIN ASPART 100 UNITS/ML 3 ML PEN SC SCH ×4 (07:00→20:33)
[2017-06-09] MEDS: LIDODERM (LIDOCAINE) PATCH 5% TD SCH (07:55)
[2017-06-09] MEDS: PANTOprazole SOD 40 MG TAB PO SCH (07:55)
[2017-06-09] MEDS: LISINOPRIL 2.5 MG TAB PO SCH (07:55)
[2017-06-09] MEDS: POLYETHYLENE (MIRALAX) 17 GM PACK PO SCH (07:56)
[2017-06-09] MEDS: HEPARIN 25,000 UNIT/500ML D5W 500 ML IV PRN (08:02)
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
[2017-06-09] MEDS ORDERED: HEPARIN - STOP ORDER ONE (12:15)
[2017-06-09] MEDS: ENOXAPARIN 80 MG/0.8 ML SYR SQ SCH ×2 (12:33→19:31)
[2017-06-09] MEDS: WARFARIN SOD 5 MG TAB PO SCH (15:54)
[2017-06-09] MEDS: LEVOTHYROXINE 100 MCG TAB PO SCH (19:32)
[2017-06-10 00:01] VITALS: BP 182/90; O2SAT 95
[2017-06-10] MEDS: HydrALAZINE HCL 20 MG/ML VIAL IV. PRN (00:02)
[2017-06-10 01:28] VITALS: BP 145/71
[2017-06-10 03:23] VITALS: BP 146/65; PULSE 73; TEMP 36.6; O2SAT 94
[2017-06-10] MEDS: ACETAMINOPHEN 500 MG TAB PO SCH (05:54)
[2017-06-10 07:01] LABS: PARTIAL THROMBOPLASTIN RATIO 1.3; PROTHROMBIN TIME (PATIENT) 11.1 SECONDS (9.0-12.0)
[2017-06-10] MEDS: POLYETHYLENE (MIRALAX) 17 GM PACK PO SCH (08:14)
[2017-06-10] MEDS: LIDODERM (LIDOCAINE) PATCH 5% TD SCH (08:14)
[2017-06-10] MEDS: LISINOPRIL 2.5 MG TAB PO SCH (08:14)
[2017-06-10] MEDS: PANTOprazole SOD 40 MG TAB PO SCH (08:14)
[2017-06-10] MEDS: INSULIN ASPART 100 UNITS/ML 3 ML PEN SC SCH ×2 (08:16→11:00)
[2017-06-10 08:22] VITALS: BP 171/73; PULSE 75; TEMP 36.8; O2SAT 95
[2017-06-10] MEDS: ENOXAPARIN 80 MG/0.8 ML SYR SQ SCH (10:14)
[2017-06-10 12:06] VITALS: BP 165/80; PULSE 69; TEMP 36.8; O2SAT 95
[2017-06-10] MEDS ORDERED: CMD5 PO (12:28)
[2017-06-10] MEDS ORDERED: LSN5 PO (12:28)
[2017-06-10] MEDS ORDERED: ACET-24 PO (12:28)
[2017-06-10] MEDS ORDERED: LVNIS80 SQ (12:28)
--- NOTE | 2017-06-10 12:35 | Discharge Instructions ---
Discharge Instructions Date of Service Jun 10, 2017. Admission Reason for Admission: Pulmonary Embolism Discharge Discharge Diagnosis / Problem: Pulmonary embolism Discharge Goals Goal(s): Improve disease control, Diagnostic testing, Therapeutic intervention Activity Recommendations Activity Limitations: as noted below Lifting Limitations: until after follow-up appointment (with Dr. Lopez, until then, no lifting > 5 lbs) Exercise/Sports Limitations: gradually increase as tolerated Shower/Bathe: no limitations . Instructions / Follow-Up Instructions / Follow-Up You were admitted with chest pain and found to have a blood clot in your lungs called a Pulmonary Embolism. This needs to be treated with blood thinner medication for at last 6 months. Your retrosternal hematoma remained stable and you had no evidence of further bleeding while on blood thinners here. You will need to stay on the Lovenox blood thinner injections twice a day until your coumadin level gets to the right place. Please continue to take the coumadin every day even while you are on the injections of Lovenox. You should go to the hospital lab on Tuesday and have her blood work checked. I will call you with your results and instruct you on what dose to take of the coumadin at that point, and whether you need to continue on the Lovenox shots as well. Please follow up with Dr. Lopez in 1 week-you need to call to schedule this appointment. Please follow up with Dr. Zurita's office as scheduled on Tuesday. Current Hospital Diet Patient's current hospital diet: AHA Diet (Heart Healthy), Diabetes Type 2 Diet Discharge Diet Recommended Diet: AHA Diet (Heart Healthy) (do not eat foods that are excessive in Vitamin K such as green, leafy vegetables as this counteracts the blood thinning effect of your coumadin), Diabetes Type 2 Diet Procedures Procedures Performed: CTA Chest CT Chest Chest xray Venous Doppler lower extremity Pending Studies Studies pending at discharge: no Laboratory Results Last 24 Hours Test 06/09/17 16:25 06/09/17 20:12 06/10/17 06:20 06/10/17 07:09 Bedside Glucose 151 mg/dl 134 mg/dl 131 mg/dl Prothrombin Time 11.1 SECONDS Prothromb Time International Ratio 1.0 Activated Partial Thromboplast Time 33.1 SECONDS Partial Thromboplastin Ratio 1.3 Test 06/10/17 11:24 Bedside Glucose 173 mg/dl Hemoglobin A1c Test 06/07/17 07:16 Range/Units Estimated Average Glucose 160 mg/dl Hemoglobin A1c 7.2 H 4.5-5.6 % Medical Emergencies . Who to Call and When: Medical Emergencies: If at any time you feel your situation is an emergency, please call 911 immediately. . Non-Emergent Contact Non-Emergency issues call your: Primary Care Provider, Surgeon Call Non-Emergent contact if: you have a fever, temperature is above 100.5, your pain is not controlled, your pain is worsening, your pain is unusual for you, your pain is concerning you, you have any medication questions . . "Provider Documentation" section prepared by Divya Smallwood. . VTE Core Measure Inpt VTE Proph given/why not?: Unfractionated heparin SQ, Warfarin (Coumadin), T.E.D. Stockings, SCD's
[2017-06-10] MEDS ORDERED: LISINOPRIL 2.5 MG TAB PO ONE (12:45)
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
[2017-06-10 12:59] VITALS: BP 165/80; PULSE 69; TEMP 36.8; O2SAT 95
[2017-06-11] MEDS ORDERED: LISINOPRIL 5 MG TAB PO SCH (09:00)
[2017-06-18] MEDS ORDERED: RXC5 PO (13:17)
== END 2017-06-10 14:06 | disposition home or self-care (01) | DRG 604 ==
LOC: C.EDB 08:04 → C.2E 13:21 → ENRESERV 14:17
PROVIDERS: ADMIT Internal Medicine; ATTEND Family Medicine
DX: S20.219A Contusion of unspecified front wall of thorax, initial encounter (principal); I26.99 Other pulmonary embolism without acute cor pulmonale; S22.20XA Unspecified fracture of sternum, initial encounter for closed fracture; Z86.711 Personal history of pulmonary embolism; M17.11 Unilateral primary osteoarthritis, right knee; E78.5 Hyperlipidemia, unspecified; Z86.73 Personal history of transient ischemic attack (TIA), and cerebral infarction without residual deficits; E11.40 Type 2 diabetes mellitus with diabetic neuropathy, unspecified; E03.9 Hypothyroidism, unspecified; Z82.49 Family history of ischemic heart disease and other diseases of the circulatory system; D64.9 Anemia, unspecified; J90 Pleural effusion, not elsewhere classified; V89.2XXA Person injured in unspecified motor-vehicle accident, traffic, initial encounter; Z66 Do not resuscitate; Z96.651 Presence of right artificial knee joint

== ENCOUNTER → 2017-06-12 | Outpatient (CLI) | payer BC, OTHER ==
[~2017-06-12] MED LIST changes: +ACET-24 PO; +CMD5 PO; +LSN5 PO; +LVNIS80 SQ
[2017-06-12 11:22] LABS: INR 1.6 (0.9-1.1); PROTHROMBIN TIME (PATIENT) 17.3 SECONDS (9.0-12.0)
--- NOTE | 2017-06-12 11:36 | Progress Note ---
Progress Note Date of Service Jun 12, 2017. Progress Note Called and spoke with pt and his SO on phone. INR 1.6 today. Advised to continue to Lovenox injections, continue coumadin at 5mg daily dose, and have PCP order PT/INR for on Tuesday-PCP to give further instructions on coumadin from there.
== END | disposition home or self-care (01) ==
LOC: C.LAB 10:32
PROVIDERS: ATTEND Family Medicine
DX: I26.99 Other pulmonary embolism without acute cor pulmonale (principal)

== ENCOUNTER 2017-06-13 18:23 | Inpatient (IN) | payer OTHER, BC ==
[~2017-06-13] VITALS: Ht 170.2 cm; Wt 76.5 kg
[2017-06-13] MEDS ORDERED: ONDANSETRON INJ 2 MG/ML 2 ML VIAL IV STA (19:06)
[2017-06-13] MEDS: MoRPHine SULFATE 4 MG/ML 1 ML CARP\\VIAL IV PRN ×2 (19:26→20:20)
[2017-06-13] MEDS ORDERED: OPTIRAY 320 IV PRN (19:30)
--- NOTE | 2017-06-13 19:36 | DIAGNOSTIC IMAGING REPORT ---
CHEST ONE VIEW PORTABLE CLINICAL HISTORY: 86 years-old Male presenting with CHEST PAIN. TECHNIQUE: Portable upright AP view of the chest was obtained. COMPARISON: 06/07/2017. FINDINGS: Atherosclerosis of aortic arch. Cardiac silhouette normal in size. Persistent left basilar opacity likely with a trace left pleural effusion. Minimal blunting of the right costophrenic angle also suggests trace right effusion. No pneumothorax. No new focal infiltrate. Degenerative changes of the thoracic spine. Upper abdomen normal. IMPRESSION: 1. Persistent bilateral trace pleural effusions with extensive left basilar opacity, possibly atelectasis. No significant change since the prior exam. Electronically signed by: Selwyn Flores M.D. 06/13/2017 7:35 PM Dictated Date/Time: 06/13/2017 7:33 PM
[2017-06-13 20:44] LABS: ALKALINE PHOSPHATASE 76 U/L (45-117); ALT/SGPT 21 U/L (12-78); BLOOD UREA NITROGEN 21 mg/dl (7-18); BUN/CREATININE RATIO 21.8 (10-20); CALCIUM 8.3 mg/dl (8.5-10.1); CARBON DIOXIDE 21 mmol/L (21-32); CHLORIDE 108 mmol/L (98-107); CREATININE 0.97 mg/dl (0.60-1.40); GLUCOSE 187 mg/dl (70-99); SODIUM 138 mmol/L (136-145)
[2017-06-13 20:47] LABS: BASO % 0.2 %; BASO ABS # 0.02 K/uL (0-0.2); COMPLETE YES; EOS % 1.1 %; HEMATOCRIT 34.9 % (42-52); IG% 0.3 %; LYMPH % 10.2 %; LYMPH ABS # 1.03 K/uL (1.2-3.4); MEAN CELL VOLUME 90.9 fL (80-100); MEAN CORPUSCULAR HEMOGLOBIN 30.7 pg (25-34); MEAN CORPUSCULAR HGB CONC 33.8 g/dl (32-36); MEAN PLATELET VOLUME 8.9 fL (7.4-10.4); MONO % 5.9 %; NEUT % 82.3 %; PLATELET COUNT 223 K/uL (130-400); RED BLOOD COUNT 3.84 M/uL (4.7-6.1); WHITE BLOOD COUNT 10.08 K/uL (4.8-10.8)
[2017-06-13 20:59] LABS: PARTIAL THROMBOPLASTIN RATIO 1.5; PROTHROMBIN TIME (PATIENT) 22.5 SECONDS (9.0-12.0)
--- NOTE | 2017-06-13 21:36 | DIAGNOSTIC IMAGING REPORT ---
(CHEST FOR PE) ANGIO WITH CLINICAL HISTORY: 86 years-old Male presenting with ^left chest pain, recent right pulmonary emboli and sternalfx. TECHNIQUE: Multidetector CT angiography of the chest was performed after administration of intravenous contrast. 3-D volumetric and/or maximum intensity projection (MIP) images were subsequently reconstructed for review. IV contrast: 116 mL of Optiray 320. A dose lowering technique was used consistent with the principles of ALARA (as low as reasonably achievable). COMPARISON: 06/08/2017. CT DOSE (mGy.cm): The estimated cumulative dose is 291.84 mGy.cm. FINDINGS: [employer] topogram: Unremarkable. Pulmonary vasculature: The study is adequate for assessment of the pulmonary vascular tree. No filling defect within the pulmonary arteries to suggest embolus. Main pulmonary artery is not enlarged. No flattening of the interventricular septum. No intracardiac intracardiac filling defect. No reflux of contrast into the hepatic veins. Remaining chest: On soft tissue windows, redemonstration of the retrosternal hyperdense collection measuring 6.9 x 3.5 cm in maximal axial dimensions (previously 5.9 x 2.7 cm). Slight interval increase in associated mass effect on the subjacent heart at the level of the right ventricular outflow track. There is also slightly greater extension of hematoma inferiorly within the pericardial fat anterior to the right ventricular free wall. No axillary, supraclavicular, hilar, or mediastinal lymphadenopathy. Atherosclerosis of the aorta. The heart is normal in size, no mass effect on the right ventricular free wall is noted, slightly increased from prior. Small pericardial effusion, unchanged. Moderate bilateral pleural effusions also unchanged. Multiple parapelvic cysts noted in the left kidney. Pancreatic parenchymal atrophy. On lung windows, persistent dependent consolidation with punctate calcification in the lower lobes bilaterally. Lower lobe bronchial wall thickening. No new infiltrate. Airways patent. On bone windows, redemonstration of the sternal fracture. Old left rib fracture also noted. Flowing osteophytosis along the thoracic spine could suggest diffuse radiographic skeletal hyperostosis. IMPRESSION: 1. No evidence of pulmonary embolus. 2. Slight interval increase in size and extent with slight increase in associated mass effect of the retrosternal hematoma associated with the sternal fracture. This results in slight increase compression of the right ventricular free wall. 3. Small pericardial effusion, unchanged. 4. Persistent moderate bilateral effusions with associated dependent consolidation, which is likely in part passive atelectasis. The presence of punctate calcification within the dependent consolidation could suggest chronic passive atelectasis or development of chronic aspiration. Electronically signed by: Selwyn Flores M.D. 06/13/2017 9:35 PM Dictated Date/Time: 06/13/2017 9:24 PM
[2017-06-13 22:01] LABS: POTASSIUM 4.4 mmol/L (3.5-5.1)
[2017-06-13] MEDS ORDERED: HYDROmorphone INJ 0.5 MG/0.5 ML SYR IV PRN (22:45)
[2017-06-14] VITALS (9 sets, daily range): BP systolic 98–181; BP diastolic 59–136; PULSE 67–82; TEMP 36.4–36.9; O2SAT 92–97; Ht 170.2 cm; Wt 76.5 kg
[2017-06-14] MEDS ORDERED: ONDANSETRON INJ 2 MG/ML 2 ML VIAL IV PRN (00:30)
[2017-06-14] MEDS ORDERED: POLYETHYLENE (MIRALAX) 17 GM PACK PO PRN (00:30)
[2017-06-14] MEDS ORDERED: MAGNESIUM HYDROXIDE SUSP 30 ML UDC PO PRN (00:30)
[2017-06-14] MEDS ORDERED: MoRPHine SULFATE 2 MG/ML CARP IV PRN (00:30)
[2017-06-14] MEDS ORDERED: ACETAMINOPHEN 325 MG TAB PO PRN (00:30)
[2017-06-14] MEDS ORDERED: ALUMINUM/MAGNESIUM/SIMETH (MAALOX MAX) 30 ML UDC PO PRN (00:30)
[2017-06-14] MEDS ORDERED: ACETAMINOPHEN 500 MG TAB PO PRN (00:30)
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
[2017-06-14] MEDS ORDERED: GLUCOSE 40% GEL 15 GM TUBE PO PRN (02:30)
[2017-06-14] MEDS ORDERED: DEXTROSE 50% 50 ML SYR IV PRN (02:30)
[2017-06-14] MEDS ORDERED: GLUCOSE 10 TABS/TUBE PO PRN (02:30)
[2017-06-14] MEDS ORDERED: GLUCAGON FOR INJ 1 MG VIAL SQ PRN (02:30)
[2017-06-14] MEDS ORDERED: PERFLUTREN LIPID MICROSPHERE (DEFINITY) IV ONE (06:52)
[2017-06-14] MEDS: PANTOprazole SOD 40 MG TAB PO SCH (07:34)
[2017-06-14] MEDS: ASCORBIC ACID 500 MG TAB PO SCH (07:34)
[2017-06-14] MEDS: LISINOPRIL 5 MG TAB PO SCH (07:34)
[2017-06-14] MEDS: INSULIN ASPART 100 UNITS/ML 3 ML PEN SC SCH ×4 (07:34→20:44)
[2017-06-14 07:44] LABS: INR 2.5 (0.9-1.1); PARTIAL THROMBOPLASTIN RATIO 1.5; PROTHROMBIN TIME (PATIENT) 27.3 SECONDS (9.0-12.0)
[2017-06-14 08:03] LABS: BUN/CREATININE RATIO 17.5 (10-20); CALCIUM 8.2 mg/dl (8.5-10.1); CREATININE 1.22 mg/dl (0.60-1.40); POTASSIUM 4.4 mmol/L (3.5-5.1)
[2017-06-14 08:43] LABS: HEMATOCRIT 30.3 % (42-52); MEAN CELL VOLUME 91.3 fL (80-100); MEAN CORPUSCULAR HEMOGLOBIN 30.7 pg (25-34); MEAN CORPUSCULAR HGB CONC 33.7 g/dl (32-36); MEAN PLATELET VOLUME 9.1 fL (7.4-10.4); PLATELET COUNT 246 K/uL (130-400); RED BLOOD COUNT 3.32 M/uL (4.7-6.1); WHITE BLOOD COUNT 6.01 K/uL (4.8-10.8)
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
[2017-06-14] MEDS ORDERED: PHYTONADIONE 5 MG TAB PO STA (09:22)
--- NOTE | 2017-06-14 10:53 | ECHOCARDIOGRAM REPORT ---
*NOTICE TO RECEIVING CONSTITUTION PARTY AGENCY This information is strictly Confidential and protected under [place] law. [place] law prohibits you from making any further disclosure of this information unless further disclosure is expressly permitted by the written consent of the person to whom it pertains or is authorized by law. A general authorization for the release of medical or other information is not sufficient for this purpose. Hospital accepts no responsibility if the information is made available to any other person, INCLUDING THE PATIENT. Interpretation Summary * Name: SAY ROD Study Date: 06/14/2017 06:18 AM BP: 143/86 mmHg * Patient Location: C.2T\S\E219\S\1 HR: 67 * : 1930 (M/d/yyy) Gender: Male Height: 67 in * Age: 86 yrs Ethnicity: CA Weight: 165 lb * Ordering Physician: Tai Forde * Referring Physician: Self, Referred * Performed By: Kalina Lopez RDCS * * Reason For Study: STERNAL HEMATOMA WITH RV COMPRESSION, EVALUATE FUNCTION * BSA: 1.9 m2 * Retrosternal collection of fluid consistent with hematoma. Compression of the right ventricle and right ventricular outflow tract. * Small right ventricular cavity. This is secondary to compression of the mid to distal free wall and apex by the hematoma. * Small pericardial effusion. No evidence of cardiac tamponade. * Moderate pleural effusion. * Hyperdynamic left ventricular systolic function. * Moderate concentric left ventricle hypertrophy. * Class 1 left ventricular diastolic dysfunction. * Trace aortic regurgitation. * -- Conclusions -- * There is no diastolic compression of the right ventricle to suggest cardiac tamponade. Procedure Details * A contrast injection of Definity was performed to improve assessment of LV function. * Contrast was injected into an intravenous site in the left arm. * One vial of Definity ultrasound contrast was diluted in normal saline to a total volume of 10 ml. A total of '2' ml of solution was administered during imaging. * Lot # [id number] of Definity utilized for procedure. * Expiration date JUL 04. * The attending nurse who injected the contrast agent was KINJAL YOUNG RN. Left Ventricle * The left ventricle is normal in size. * There is moderate concentric left ventricular hypertrophy. * Ejection Fraction = >70 %. * The left ventricle is hyperdynamic. * A full diastolic examination was done with clinical findings of Class I diastolic dysfunction. * No regional wall motion abnormalities noted. Right Ventricle * Large collection of fluid and or blood anterior to right ventricular free wall and the apex of the heart ( 4-5 cm diameter ) Extrinsic compression of the apex and the mid - distal free wall of the right ventricle. The right ventricular cavity visualized is small in diameter.( 1-2 cm ). This segment is franny normally. External compression of the RV outflow tract, Atria * The left atrial size is normal. * Right atrial size is normal. * No ASD detected; PFO is not assessed. Mitral Valve * There is mild mitral annular calcification. * Mitral stenosis is absent. * Significant mitral regurgitation is absent. Tricuspid Valve * The tricuspid valve is not well visualized. * Significant tricuspid regurgitation is absent. * Right ventricular systolic pressure is normal. Aortic Valve * The aortic valve is trileaflet. * The aortic valve opens well. * Trace aortic regurgitation. Pulmonic Valve * The pulmonic valve is not well seen, but is grossly normal. * Pulmonic stenosis is absent. * There is no significant pulmonary regurgitation. Great Vessels * The aortic root is normal size. Pericardium/Pleural * Small pericardial effusion. * There are no echocardiographic indications of cardiac tamponade. * There is no diastolic compression of the right ventricle to suggest cardiac tamponade. * 0.5 cm diameter of the pericardial effusion. * Moderate size left pleural effusion. MMode 2D Measurements and Calculations IVSd 1.6 cm IVSs 2.5 cm LVIDd 4.3 cm LVIDs 2.9 cm LVPWd 1.6 cm LVPWs 1.7 cm IVS/LVPW 1.0 FS 32.4 % EDV(Teich) 85.2 ml ESV(Teich) 33.3 ml EF(Teich) 61.0 % EDV(cubed) 82.1 ml ESV(cubed) 25.4 ml EF(cubed) 69.1 % % IVS thick 52.0 % % LVPW thick 8.7 % LV mass(C)d 289.0 grams LV mass(C)dI 155.1 grams/m\S\2 LV mass(C)s 279.3 grams LV mass(C)sI 149.9 grams/m\S\2 SV(Teich) 51.9 ml SI(Teich) 27.9 ml/m\S\2 SV(cubed) 56.7 ml SI(cubed) 30.4 ml/m\S\2 Ao root diam 3.7 cm Ao root area 10.8 cm\S\2 LA dimension 2.2 cm LA/Ao 0.60 LVAd ap4 26.4 cm\S\2 LVLd ap4 7.7 cm EDV(MOD-sp4) 72.5 ml EDV(sp4-el) 76.7 ml LVAs ap4 10.7 cm\S\2 LVLs ap4 6.2 cm ESV(MOD-sp4) 15.5 ml ESV(sp4-el) 15.7 ml EF(MOD-sp4) 78.7 % EF(sp4-el) 79.5 % LVAd ap2 23.6 cm\S\2 LVLd ap2 7.5 cm EDV(MOD-sp2) 60.7 ml EDV(sp2-el) 62.7 ml LVAs ap2 10.4 cm\S\2 LVLs ap2 6.6 cm ESV(MOD-sp2) 13.7 ml ESV(sp2-el) 14.0 ml EF(MOD-sp2) 77.5 % EF(sp2-el) 77.7 % LVLd %diff -2.86 % EDV(MOD-bp) 67.9 ml LVLs %diff 6.1 % ESV(MOD-bp) 14.2 ml EF(MOD-bp) 79.1 % SV(MOD-sp4) 57.0 ml SI(MOD-sp4) 30.6 ml/m\S\2 SV(MOD-sp2) 47.1 ml SI(MOD-sp2) 25.3 ml/m\S\2 SV(MOD-bp) 53.7 ml SI(MOD-bp) 28.8 ml/m\S\2 SV(sp4-el) 60.9 ml SI(sp4-el) 32.7 ml/m\S\2 SV(sp2-el) 48.7 ml SI(sp2-el) 26.2 ml/m\S\2 Doppler Measurements and Calculations MV E max claudia 69.8 cm/sec MV A max claudia 98.2 cm/sec MV E/A 0.71 MV dec time 0.32 sec Ao V2 max 180.8 cm/sec Ao max PG 13.1 mmHg Ao max PG (full) 5.2 mmHg LV V1 max PG 7.9 mmHg LV V1 max 140.3 cm/sec TR max claudia 179.1 cm/sec
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
[2017-06-14] MEDS ORDERED: PHYTONADIONE INJ 5 MG in SODIUM CHLORIDE 0.9% 50ML 50 ML IV ONE (14:30)
[2017-06-14 15:44] LABS: CKMB/CK RATIO 2.6 (0-3.0)
[2017-06-14] MEDS ORDERED: TRAMADOL HCL 50 MG TAB PO PRN (16:45)
[2017-06-14] MEDS: INSULIN GLARGINE SOLOSTAR 100 UNITS/ML 3 ML PEN SC SCH (20:45)
[2017-06-14] MEDS: LEVOTHYROXINE 100 MCG TAB PO SCH (20:49)
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
[2017-06-15 04:02] VITALS: BP 142/74; PULSE 81; TEMP 36.9; O2SAT 90
[2017-06-15 04:22] LABS: BASO % 0.3 %; BASO ABS # 0.02 K/uL (0-0.2); EOS % 1.6 %; HEMATOCRIT 26.5 % (42-52); IG% 0.3 %; LYMPH % 20.5 %; LYMPH ABS # 1.25 K/uL (1.2-3.4); MEAN CELL VOLUME 90.8 fL (80-100); MEAN CORPUSCULAR HEMOGLOBIN 30.5 pg (25-34); MEAN CORPUSCULAR HGB CONC 33.6 g/dl (32-36); MEAN PLATELET VOLUME 8.5 fL (7.4-10.4); MONO % 9.7 %; NEUT % 67.6 %; PLATELET COUNT 217 K/uL (130-400); RED BLOOD COUNT 2.92 M/uL (4.7-6.1)
[2017-06-15 04:31] LABS: INR 1.1 (0.9-1.1)
[2017-06-15 04:47] LABS: COMPLETE YES; OVALOCYTES 1+
[2017-06-15] MEDS: INSULIN ASPART 100 UNITS/ML 3 ML PEN SC SCH ×4 (07:00→21:07)
[2017-06-15 07:39] VITALS: BP 127/73; PULSE 72; TEMP 37; O2SAT 92
[2017-06-15] MEDS: LISINOPRIL 5 MG TAB PO SCH (07:40)
[2017-06-15] MEDS: ASCORBIC ACID 500 MG TAB PO SCH (07:42)
--- NOTE | 2017-06-15 08:56 | History & Physical Bridge Note ---
H&P Re-Evaluation Bridge Note: I have examined the patient, reviewed the History & Physical and in the interval since the performance of the History & Physical I have noted the following changes of clinical significance: No changes noted
[2017-06-15] MEDS: PANTOprazole SOD 40 MG TAB PO SCH (09:45)
[2017-06-15 11:23] VITALS: BP 117/68; PULSE 80; TEMP 36.8; O2SAT 93
[2017-06-15] MEDS ORDERED: SODIUM CHLORIDE 0.9% PF 50 ML VIAL ONE (14:11)
[2017-06-15] MEDS ORDERED: BUPIVACAINE LIPOSOME 1/3% 266 MG/20 ML VIAL INFIL ONE (14:12)
[2017-06-15] MEDS ORDERED: MIDAZOLAM HCL 1 MG/ML 2ML VIAL ONE (14:19)
[2017-06-15] MEDS ORDERED: FENTANYL CITRATE INJ 50 MCG/1 ML 2 ML VIAL ONE ×2 (14:19→15:26)
[2017-06-15] MEDS ORDERED: FENTANYL CITRATE INJ 50 MCG/1 ML 2 ML VIAL IV PRN (14:30)
[2017-06-15] MEDS ORDERED: ATROPINE SULFATE 0.1 MG/ML 5ML SYR IV PRN ×2 (14:30→17:45)
[2017-06-15] MEDS ORDERED: EpHEDrine SULFATE INJ 50 MG/ML AMP IV PRN ×2 (14:30→17:45)
[2017-06-15] MEDS ORDERED: ONDANSETRON INJ 2 MG/ML 2 ML VIAL IV PRN ×2 (14:30→16:30)
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
[2017-06-15] MEDS ORDERED: CEFAZOLIN IV 2,000 MG in DEXTROSE 5% 50ML 100 ML IV SCH (16:30)
[2017-06-15] MEDS ORDERED: MoRPHine SULFATE 2 MG/ML CARP IV PRN (16:30)
[2017-06-15] MEDS ORDERED: DEXAMETHASONE SOD INJ 4 MG/ML VIAL ONE (16:49)
[2017-06-15] MEDS ORDERED: EpHEDrine SULFATE 50MG/5ML SYR ONE (16:49)
[2017-06-15] MEDS ORDERED: PROPOFOL IV EMULSION 10 MG/ML 20 ML VIAL IV ONE (16:49)
[2017-06-15] MEDS ORDERED: LIDOCAINE HCL 2% 2 ML VIAL (20MG/ML) ONE (16:49)
[2017-06-15] MEDS ORDERED: PHENYLEPHRINE 100MCG/ML 5ML SYR ONE (16:49)
[2017-06-15] MEDS ORDERED: GLYCOPYRROLATE INJ 0.2 MG/ML VIAL ONE (16:49)
[2017-06-15] MEDS ORDERED: ONDANSETRON INJ 2 MG/ML 2 ML VIAL ONE (16:49)
[2017-06-15] MEDS ORDERED: NEOSTIGMINE METHYLSULFATE 5 MG/5 ML SYR ONE (16:49)
[2017-06-15] MEDS ORDERED: ESMOLOL HCL 10 MG/ML 10 ML VIAL ONE (16:49)
[2017-06-15] MEDS ORDERED: ROCURONIUM BROMIDE 10 MG/ML 5 ML VIAL IV ONE (16:49)
--- NOTE | 2017-06-15 17:09 | DIAGNOSTIC IMAGING REPORT ---
CHEST ONE VIEW PORTABLE CLINICAL HISTORY: hematoma evacuation postprocedural evaluation COMPARISON STUDY: 06/13/2017 FINDINGS: Interval placement of a left sided chest tube. Subcutaneous emphysematous private branch exchange service adviser the left hemithorax and low left cervical region. No significant postprocedural pneumothorax. Improved aeration medial left base. Right lung remains generally clear. IMPRESSION: Improved postprocedural changes left hemithorax. Subcutaneous emphysema. Improved aeration medial left base. The above report was generated using voice recognition software. It may contain grammatical, syntax or spelling errors. Electronically signed by: Eric Luna M.D. 06/15/2017 5:07 PM Dictated Date/Time: 06/15/2017 5:06 PM
--- NOTE | 2017-06-15 17:40 | Anesthesiology Progress Note ---
Anesthesia Post Op Note Date & Time Jun 15, 2017 at 17:40 Vital Signs Pain Intensity: 0 Vital Signs Past 12 Hours Date Time Temp Pulse Resp B/P (MAP) Pulse Ox O2 Delivery O2 Flow Rate FiO2 06/15/17 17:30 59 16 165/71 100 Nasal Cannula 2 06/15/17 17:15 36.6 55 16 155/67 100 Nasal Cannula 2 06/15/17 17:05 62 17 163/71 100 Nasal Cannula 2 06/15/17 16:55 65 14 160/74 100 Oxymask 8 06/15/17 16:45 69 15 152/77 100 Oxymask 8 06/15/17 16:39 36.3 75 16 149/75 98 Oxymask 8 06/15/17 16:00 Room Air 06/15/17 12:00 Room Air 06/15/17 11:23 36.8 80 20 117/68 (84) 93 Room Air 06/15/17 08:00 Room Air 06/15/17 07:39 37.0 72 16 127/73 (91) 92 Room Air Notes Mental Status: alert / awake / arousable, participated in evaluation Pt Amnestic to Procedure: Yes Nausea / Vomiting: adequately controlled Pain: adequately controlled Airway Patency, RR, SpO2: stable & adequate BP & HR: stable & adequate Hydration State: stable & adequate Anesthetic Complications: no major complications apparent
[2017-06-15] MEDS: D5W AND 1/2NSS 1,000 ML IV SCH (17:55)
[2017-06-15] MEDS: ACETAMINOPHEN IV 1,000 MG in EMPTY BAG 0 ML IV SCH (17:56)
[2017-06-15 20:00] VITALS: BP 166/74; PULSE 60; TEMP 36.6; O2SAT 95
[2017-06-15] MEDS: LEVOTHYROXINE 100 MCG TAB PO SCH (21:05)
[2017-06-15] MEDS: DOCUSATE SODIUM 100 MG CAP PO SCH (21:05)
[2017-06-15] MEDS: INSULIN GLARGINE SOLOSTAR 100 UNITS/ML 3 ML PEN SC SCH (21:06)
[2017-06-15] MEDS: METOCLOPRAMIDE HCL INJ 5 MG/ML 2 ML VIAL IV. SCH (22:03)
[2017-06-15 23:28] VITALS: BP 153/64; PULSE 79; TEMP 36.7; O2SAT 93
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
[2017-06-16] VITALS (12 sets, daily range): BP systolic 135–165; BP diastolic 59–78; PULSE 75–84; TEMP 36.4–37.1; O2SAT 92–96
[2017-06-16] MEDS: CEFAZOLIN IV 2,000 MG in SYRINGE 0 ML IV SCH ×2 (00:29→07:46)
[2017-06-16] MEDS: ACETAMINOPHEN IV 1,000 MG in EMPTY BAG 0 ML IV SCH ×3 (01:38→16:45)
[2017-06-16] MEDS: D5W AND 1/2NSS 1,000 ML IV SCH ×2 (04:35→14:03)
[2017-06-16] MEDS: METOCLOPRAMIDE HCL INJ 5 MG/ML 2 ML VIAL IV. SCH ×2 (06:21→14:03)
--- NOTE | 2017-06-16 06:59 | DIAGNOSTIC IMAGING REPORT ---
CHEST ONE VIEW PORTABLE CLINICAL HISTORY: 87 years-old Male presenting with hematoma evacuation . TECHNIQUE: Portable upright AP view of the chest was obtained. COMPARISON: 06/15/2017. FINDINGS: Large bore left pleural drain remains positioned at the paramediastinal left apex. Extensive associated subcutaneous emphysema along the left lateral chest wall extending to the left base of the neck, likely postprocedural. Atherosclerosis of the aortic arch. Cardiac silhouette normal in size. Persistent left basilar opacities intensely with trace left pleural fluid. Small right pleural effusion also suspected. No pneumothorax. Degenerative changes of the thoracic spine. Upper abdomen normal. IMPRESSION: 1. Large bore left pleural drain position at the apex with unchanged left basilar atelectasis and trace pleural fluid. No pneumothorax. 2. Small right pleural effusion suspected, unchanged since CT from 06/13/2017. Electronically signed by: Selwyn Flores M.D. 06/16/2017 6:58 AM Dictated Date/Time: 06/16/2017 6:55 AM
[2017-06-16 07:13] LABS: BASO % 0.2 %; BASO ABS # 0.02 K/uL (0-0.2); EOS % 0.1 %; HEMATOCRIT 26.1 % (42-52); IG% 0.4 %; LYMPH % 11.9 %; LYMPH ABS # 0.96 K/uL (1.2-3.4); MEAN CELL VOLUME 90.6 fL (80-100); MEAN CORPUSCULAR HEMOGLOBIN 30.9 pg (25-34); MEAN CORPUSCULAR HGB CONC 34.1 g/dl (32-36); MEAN PLATELET VOLUME 8.2 fL (7.4-10.4); MONO % 8.4 %; PLATELET COUNT 242 K/uL (130-400); RED BLOOD COUNT 2.88 M/uL (4.7-6.1); WHITE BLOOD COUNT 8.08 K/uL (4.8-10.8)
[2017-06-16 07:20] LABS: PROTHROMBIN TIME (PATIENT) 10.8 SECONDS (9.0-12.0)
[2017-06-16] MEDS: OXYCODONE HCL IR 5 MG TAB (IMMEDIATE RELEASE) PO PRN ×2 (07:33→15:24)
[2017-06-16] MEDS: DOCUSATE SODIUM 100 MG CAP PO SCH ×2 (07:44→20:40)
[2017-06-16] MEDS: PANTOprazole SOD 40 MG TAB PO SCH (07:44)
[2017-06-16] MEDS: LISINOPRIL 5 MG TAB PO SCH (07:44)
[2017-06-16] MEDS: ASCORBIC ACID 500 MG TAB PO SCH (07:45)
[2017-06-16 07:50] LABS: BUN/CREATININE RATIO 17.3 (10-20); CALCIUM 7.7 mg/dl (8.5-10.1); CREATININE 1.21 mg/dl (0.60-1.40); POTASSIUM 3.8 mmol/L (3.5-5.1)
[2017-06-16] MEDS: INSULIN ASPART 100 UNITS/ML 3 ML PEN SC SCH ×4 (07:54→20:43)
[2017-06-16 07:58] LABS: COMPLETE YES
--- NOTE | 2017-06-16 09:46 | Anesthesiology Progress Note ---
Anesthesia Post Op Note Date & Time Jun 16, 2017 at 09:45 Vital Signs Pain Intensity: 4.0 Vital Signs Past 12 Hours Date Time Temp Pulse Resp B/P (MAP) Pulse Ox O2 Delivery O2 Flow Rate FiO2 06/16/17 08:00 94 Room Air 06/16/17 07:25 36.8 77 20 165/78 (107) 92 Room Air 06/16/17 04:22 36.8 84 18 137/65 (89) 94 Room Air 06/16/17 04:00 94 Room Air 06/16/17 00:00 93 Room Air 06/15/17 23:28 36.7 79 18 153/64 (93) 93 Room Air Notes Mental Status: alert / awake / arousable, participated in evaluation Pt Amnestic to Procedure: Yes Nausea / Vomiting: adequately controlled Pain: adequately controlled Airway Patency, RR, SpO2: stable & adequate BP & HR: stable & adequate Hydration State: stable & adequate Anesthetic Complications: no major complications apparent
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
--- NOTE | 2017-06-16 16:55 | SURGERY PROGRESS NOTE ---
DATE: 06/16/2017 SUBJECTIVE: Mr. Orozco was seen today on 06/16/2017. I am actually quite happy with him. He is on room air with 95% saturations. His blood pressure is quite good. He is afebrile. He is having pain in his left chest and under his shoulders, which I believe is due to his chest tube. He is making excellent urine. He drained a total of 164 mL from his chest tube and has no air leak and I think his x-ray looks quite good today. He does have some subcutaneous emphysema, but I believe this is due to insufflation of CO2 at the time of surgery. At this point, I am quite happy with him. We will probably pull his chest tube out tomorrow and then hopefully this will improve his pain.
[2017-06-16] MEDS: LEVOTHYROXINE 100 MCG TAB PO SCH (20:41)
[2017-06-16] MEDS: INSULIN GLARGINE SOLOSTAR 100 UNITS/ML 3 ML PEN SC SCH (20:42)
[2017-06-17] VITALS (11 sets, daily range): BP systolic 131–162; BP diastolic 61–77; PULSE 70–88; TEMP 36.4–36.9; O2SAT 92–97
[2017-06-17] MEDS: ACETAMINOPHEN IV 1,000 MG in EMPTY BAG 0 ML IV SCH ×2 (02:13→10:02)
[2017-06-17] MEDS: OXYCODONE HCL IR 5 MG TAB (IMMEDIATE RELEASE) PO PRN (02:14)
[2017-06-17] MEDS: D5W AND 1/2NSS 1,000 ML IV SCH ×2 (02:16→10:03)
[2017-06-17] MEDS: INSULIN ASPART 100 UNITS/ML 3 ML PEN SC SCH ×4 (08:08→21:04)
--- NOTE | 2017-06-17 08:08 | DIAGNOSTIC IMAGING REPORT ---
CHEST ONE VIEW PORTABLE CLINICAL HISTORY: med. hematoma dyspnea COMPARISON STUDY: 06/16/2017 FINDINGS: Subcutaneous emphysema is unchanged from the prior study. Position of a left-sided chest tube is unaltered. Focal atelectatic/infiltrative change left mid superior diaphragmatic region is unaltered. Small fixed lateral hernia. Right lung is clear. IMPRESSION: No significant change from the prior study. Unchanging post procedural changes left hemithorax. The above report was generated using voice recognition software. It may contain grammatical, syntax or spelling errors. Electronically signed by: Eric Luna M.D. 06/17/2017 8:07 AM Dictated Date/Time: 06/17/2017 8:06 AM
[2017-06-17] MEDS: LISINOPRIL 5 MG TAB PO SCH (08:09)
[2017-06-17] MEDS: PANTOprazole SOD 40 MG TAB PO SCH (08:09)
[2017-06-17] MEDS: DOCUSATE SODIUM 100 MG CAP PO SCH ×2 (08:09→20:57)
[2017-06-17] MEDS: ASCORBIC ACID 500 MG TAB PO SCH (08:09)
[2017-06-17] MEDS: INSULIN GLARGINE SOLOSTAR 100 UNITS/ML 3 ML PEN SC SCH ×2 (10:03→21:05)
--- NOTE | 2017-06-17 14:58 | DIAGNOSTIC IMAGING REPORT ---
CHEST ONE VIEW PORTABLE CLINICAL HISTORY: 87 years-old Male presenting with tube removal. TECHNIQUE: Portable upright AP view of the chest was obtained. COMPARISON: 06/17/2017 at 7:50 AM. FINDINGS: There has been interval removal of the large bore left pleural drain. Persistent extensive subcutaneous emphysema along the left lateral chest wall and base of the neck. Left basilar opacity persists. No pneumothorax or large effusion. Right lung and pleural space clear. Degenerative changes of the thoracic spine. Upper abdomen normal. IMPRESSION: 1. No pneumothorax status post left chest tube removal. Persistent left basilar atelectasis. Electronically signed by: Sewlyn Flores M.D. 06/17/2017 2:56 PM Dictated Date/Time: 06/17/2017 2:41 PM
--- NOTE | 2017-06-17 15:42 | SURGERY PROGRESS NOTE ---
DATE: 06/17/2017 SUBJECTIVE: Mr. Orozco seen today on 06/17/2017. His x-ray looks quite good and his pleural drainage has been quite low. I removed his chest tube. He had much less pain after been removed. He is actually quite happy. He has improved tremendously since preop. At this point, I think he is good enough to go to [facility]. I discussed this with Dr. Freeman. I will see him back in 1 week with a chest x-ray.
[2017-06-17] MEDS ORDERED: NURSING VERBAL MED ORDER ONE (17:00)
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
[2017-06-17] MEDS: LEVOTHYROXINE 100 MCG TAB PO SCH (20:57)
--- NOTE | 2017-06-18 07:10 | Family Medicine Progress Note ---
Progress Note Date of Service Jun 18, 2017. Objective Vital Signs Date Time Temp Pulse Resp B/P (MAP) Pulse Ox O2 Delivery O2 Flow Rate FiO2 06/17/17 23:05 36.6 72 16 162/77 (105) 95 Room Air 06/17/17 22:50 Room Air 06/17/17 19:25 36.8 73 20 157/72 (100) 96 Room Air 06/17/17 16:00 97 Room Air 06/17/17 15:43 36.4 70 22 131/75 (93) 96 Room Air 06/17/17 12:00 97 Room Air 06/17/17 11:28 36.8 76 20 148/73 (98) 95 06/17/17 08:00 96 Room Air 06/17/17 07:47 36.9 88 18 153/71 (98) 96 Resident Tracking Resident Involvement: Resident Care Provided Care Provided: Adult Hospital Medicine
--- NOTE | 2017-06-18 07:23 | SURGERY PROGRESS NOTE ---
DATE: 06/18/2017 Mr. Orozco was seen today. He feels "great." His incisions are clean. He is ambulating in the hallway. He is on room air. His vital signs are stable although his blood pressure is a bit high at 162/77 this morning. His blood sugars have also been a bit high running between 133 and 276. The pathology came back on his pericardial fat and this is all benign as would be expected. All in all, he looks very good. I am hopeful that we can get him to [facility] the next day or so. He has really responded very nicely to decompression of this retrosternal hematoma.
[2017-06-18 07:36] VITALS: BP 169/73; PULSE 75; TEMP 37.1; O2SAT 94
[2017-06-18 08:10] LABS: HEMATOCRIT 27.6 % (42-52); MEAN CELL VOLUME 91.4 fL (80-100); MEAN CORPUSCULAR HEMOGLOBIN 31.1 pg (25-34); MEAN CORPUSCULAR HGB CONC 34.1 g/dl (32-36); MEAN PLATELET VOLUME 8.5 fL (7.4-10.4); PLATELET COUNT 336 K/uL (130-400); RED BLOOD COUNT 3.02 M/uL (4.7-6.1); WHITE BLOOD COUNT 6.18 K/uL (4.8-10.8)
[2017-06-18 08:44] LABS: BUN/CREATININE RATIO 14.2 (10-20); CALCIUM 8.4 mg/dl (8.5-10.1); CREATININE 1.1 mg/dl (0.60-1.40)
[2017-06-18] MEDS: LISINOPRIL 5 MG TAB PO SCH (09:04)
[2017-06-18] MEDS: ASCORBIC ACID 500 MG TAB PO SCH (09:04)
[2017-06-18] MEDS: INSULIN ASPART 100 UNITS/ML 3 ML PEN SC SCH ×2 (09:11→12:52)
[2017-06-18] MEDS: INSULIN GLARGINE SOLOSTAR 100 UNITS/ML 3 ML PEN SC SCH (09:12)
[2017-06-18] MEDS: DOCUSATE SODIUM 100 MG CAP PO SCH (09:40)
[2017-06-18] MEDS: PANTOprazole SOD 40 MG TAB PO SCH (09:40)
[2017-06-18 12:34] VITALS: BP 169/73; PULSE 75; TEMP 37.1; O2SAT 94
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
[2017-06-18] MEDS ORDERED: RXC5 PO (13:17)
[2017-06-18 13:43] VITALS: BP 160/81
== END 2017-06-18 15:10 | DRG 167 ==
LOC: C.EDB 18:24 → C.2T 06-14 00:24 → ENRESERV 06-14 01:35 → EDBEDREQ 06-17 18:45 → EDBEDREQSVC 06-17 18:45 → ENRESERV 06-17 19:02 → C.MSN 06-17 20:50
PROVIDERS: ADMIT Student in an Organized Health Care Education/Training Program; ATTEND Family Medicine
PROC: 0WC Anatomical Regions, General, Extirpation (ICD-10-PCS; principal; 2017-06-15 07:30)
DX: S27.892A Contusion of other specified intrathoracic organs, initial encounter (principal); S22.20XA Unspecified fracture of sternum, initial encounter for closed fracture; E11.9 Type 2 diabetes mellitus without complications; E03.9 Hypothyroidism, unspecified; K21.9 Gastro-esophageal reflux disease without esophagitis; Z66 Do not resuscitate; Z79.01 Long term (current) use of anticoagulants; Z79.84 Long term (current) use of oral hypoglycemic drugs; Z79.899 Other long term (current) drug therapy; Z86.711 Personal history of pulmonary embolism; Z86.73 Personal history of transient ischemic attack (TIA), and cerebral infarction without residual deficits; V49.9XXA Car occupant (driver) (passenger) injured in unspecified traffic accident, initial encounter; Z83.3 Family history of diabetes mellitus

== ENCOUNTER → 2017-06-23 | Outpatient (CLI) | payer OTHER, BC ==
[~2017-06-23] MED LIST changes: -CMD5 PO; -LVNIS80 SQ; +RXC5 PO
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
== END | disposition home or self-care (01) ==
LOC: C.RAD1850 14:28
PROVIDERS: ATTEND Surgery
DX: S22.20XA Unspecified fracture of sternum, initial encounter for closed fracture (principal); X58.XXXA Exposure to other specified factors, initial encounter; J90 Pleural effusion, not elsewhere classified

== ENCOUNTER → 2017-07-04 | Outpatient (CLI) | payer OTHER, BC ==
[2017-07-04 12:21] LABS: INR 0.9 (0.9-1.1); PROTHROMBIN TIME (PATIENT) 9.9 SECONDS (9.0-12.0)
[2017-07-04 12:29] LABS: FERRITIN 48.5 ng/ml (8.0-388.0)
[2017-07-04 13:15] LABS: BASO % 0.6 %; BASO ABS # 0.03 K/uL (0-0.2); COMPLETE YES; EOS % 4.1 %; HEMATOCRIT 32.5 % (42-52); IG% 0.2 %; LYMPH % 19.3 %; LYMPH ABS # 0.95 K/uL (1.2-3.4); MEAN CORPUSCULAR HEMOGLOBIN 30.7 pg (25-34); MEAN CORPUSCULAR HGB CONC 34.2 g/dl (32-36); MONO % 5.3 %; NEUT % 70.5 %; PLATELET COUNT 249 K/uL (130-400); RED BLOOD COUNT 3.61 M/uL (4.7-6.1); WHITE BLOOD COUNT 4.93 K/uL (4.8-10.8)
== END | disposition home or self-care (01) ==
LOC: C.LAB 10:07
PROVIDERS: ATTEND Internal Medicine
DX: I26.99 Other pulmonary embolism without acute cor pulmonale (principal); D64.9 Anemia, unspecified

== ENCOUNTER → 2017-07-21 | Outpatient (CLI) | payer BC ==
[~2017-07-21] MED LIST changes: +LISI-730 PO; -LSN5 PO
--- NOTE | 2017-07-21 09:57 | DIAGNOSTIC IMAGING REPORT ---
CHEST 2 VIEWS ROUTINE HISTORY: 87 years-old Male S22.20XA Sternal [id number] COMPARISON: Chest radiograph 06/23/2017 TECHNIQUE: PA and lateral views of the chest FINDINGS: There is resolution of the previously described subcutaneous emphysema along the left lateral chest wall. Trace bilateral pleural effusions have slightly decreased in size from comparison. No pneumothorax or overt pulmonary edema. Atherosclerosis of the aorta. Hazy subsegmental bibasilar opacities. Degenerative changes of the shoulders and spine. Subacute appearing mid sternal fracture appears unchanged with mild displacement. IMPRESSION: 1. Unchanged appearance of the healing subacute sternal fracture. 2. Trace pleural effusions with subsegmental bibasilar opacities suggesting atelectasis. 3. No pneumothorax. The above report was generated using voice recognition software. It may contain grammatical, syntax or spelling errors. Electronically signed by: Stanton Wise M.D. 07/21/2017 9:55 AM Dictated Date/Time: 07/21/2017 9:52 AM
== END | disposition home or self-care (01) ==
LOC: C.RAD1850 09:39
PROVIDERS: ATTEND Surgery
DX: S22.20XA Unspecified fracture of sternum, initial encounter for closed fracture (principal); X58.XXXA Exposure to other specified factors, initial encounter

== ENCOUNTER → 2017-08-11 | Outpatient (CLI) | payer BC ==
[~2017-08-11] MED LIST changes: -LISI-730 PO; +LSN5 PO
[2017-08-11 17:04] LABS: BASO % 0.4 %; BASO ABS # 0.02 K/uL (0-0.2); EOS % 2.1 %; EOS ABS # 0.12 K/uL (0-0.5); HEMATOCRIT 39.3 % (42-52); IG# 0.01 K/uL (0.00-0.02); LYMPH % 21.9 %; LYMPH ABS # 1.25 K/uL (1.2-3.4); MEAN CELL VOLUME 88.7 fL (80-100); MEAN CORPUSCULAR HEMOGLOBIN 29.3 pg (25-34); MEAN CORPUSCULAR HGB CONC 33.1 g/dl (32-36); MEAN PLATELET VOLUME 9.3 fL (7.4-10.4); MONO % 7.9 %; MONO ABS # 0.45 K/uL (0.11-0.59); NEUT % 67.5 %; NEUT ABS # 3.85 K/uL (1.4-6.5); PLATELET COUNT 216 K/uL (130-400); RED CELL DISTRIBUTION WIDTH CV 13.5 % (11.5-14.5); RED CELL DISTRIBUTION WIDTH SD 44.1 fL (36.4-46.3)
[2017-08-12 06:07] LABS: HEMOGLOBIN A1C 6.7 % (4.5-5.6)
== END | disposition home or self-care (01) ==
LOC: C.LABBC 14:58
PROVIDERS: ATTEND Internal Medicine
DX: Z00.00 Encounter for general adult medical examination without abnormal findings (principal); D50.0 Iron deficiency anemia secondary to blood loss (chronic); E11.9 Type 2 diabetes mellitus without complications; E03.9 Hypothyroidism, unspecified

== ENCOUNTER → 2017-11-24 | Outpatient (CLI) | payer BC ==
[2017-11-24 18:11] LABS: BLOOD UREA NITROGEN 39 mg/dl (7-18); CALCIUM 8.4 mg/dl (8.5-10.1); CARBON DIOXIDE 27 mmol/L (21-32); GLUCOSE 120 mg/dl (70-99); POTASSIUM 4.7 mmol/L (3.5-5.1); SODIUM 141 mmol/L (136-145)
== END | disposition home or self-care (01) ==
LOC: C.LAB 15:59
PROVIDERS: ATTEND Nurse Practitioner Adult Health
DX: I10 Essential (primary) hypertension (principal)

== ENCOUNTER → 2018-02-24 | Outpatient (CLI) | payer BC ==
[~2018-02-24] MED LIST changes: +LISI-730 PO; -LSN5 PO
[2018-02-24 13:15] LABS: BASO % 0.5 %; BASO ABS # 0.02 K/uL (0-0.2); EOS % 3.5 %; EOS ABS # 0.15 K/uL (0-0.5); HEMATOCRIT 38.2 % (42-52); HEMOGLOBIN 13.2 g/dL (14.0-18.0); IG# 0.01 K/uL (0.00-0.02); LYMPH % 24.4 %; LYMPH ABS # 1.06 K/uL (1.2-3.4); MEAN CELL VOLUME 89.5 fL (80-100); MEAN CORPUSCULAR HEMOGLOBIN 30.9 pg (25-34); MEAN CORPUSCULAR HGB CONC 34.6 g/dl (32-36); MEAN PLATELET VOLUME 9.3 fL (7.4-10.4); MONO % 7.8 %; MONO ABS # 0.34 K/uL (0.11-0.59); NEUT % 63.6 %; NEUT ABS # 2.76 K/uL (1.4-6.5); PLATELET COUNT 188 K/uL (130-400); RED CELL DISTRIBUTION WIDTH CV 13.5 % (11.5-14.5); RED CELL DISTRIBUTION WIDTH SD 44.1 fL (36.4-46.3); WHITE BLOOD COUNT 4.34 K/uL (4.8-10.8)
[2018-02-24 13:23] LABS: HEMOGLOBIN A1C 7.5 % (4.5-5.6)
[2018-02-24 14:58] LABS: ALBUMIN 3.4 gm/dl (3.4-5.0); ALKALINE PHOSPHATASE 93 U/L (45-117); ALT/SGPT 13 U/L (12-78); AST/SGOT 18 U/L (15-37); BLOOD UREA NITROGEN 29 mg/dl (7-18); CALCIUM 8.5 mg/dl (8.5-10.1); CARBON DIOXIDE 25 mmol/L (21-32); CREATININE 1.44 mg/dl (0.60-1.40); GLUCOSE 237 mg/dl (70-99); POTASSIUM 4.8 mmol/L (3.5-5.1); SODIUM 137 mmol/L (136-145); TOTAL PROTEIN 6.7 gm/dl (6.4-8.2)
== END | disposition home or self-care (01) ==
LOC: C.LAB 11:55
PROVIDERS: ATTEND Nurse Practitioner Adult Health
DX: I10 Essential (primary) hypertension (principal); E03.9 Hypothyroidism, unspecified; D72.819 Decreased white blood cell count, unspecified; E11.9 Type 2 diabetes mellitus without complications

== ENCOUNTER → 2018-03-09 | Outpatient (CLI) | payer BC ==
[2018-03-09 17:56] LABS: BLOOD UREA NITROGEN 26 mg/dl (7-18); CALCIUM 8.7 mg/dl (8.5-10.1); CARBON DIOXIDE 25 mmol/L (21-32); CREATININE 1.24 mg/dl (0.60-1.40); GLUCOSE 107 mg/dl (70-99); POTASSIUM 4.7 mmol/L (3.5-5.1); SODIUM 141 mmol/L (136-145)
== END | disposition home or self-care (01) ==
LOC: C.LAB 16:32
PROVIDERS: ATTEND Nurse Practitioner Adult Health
DX: E03.9 Hypothyroidism, unspecified (principal); I10 Essential (primary) hypertension